=== PATIENT | male | born 1980 | race Caucasian/White ===

== ENCOUNTER 2024-07-04 14:45 | Outpatient (CLI) | payer MEDICARE, MEDICAID ==
[2024-07-04 15:48] VITALS: BP 122/72; PULSE 70; RESP 18; TEMP 97.7; O2SAT 99
== END 2024-07-04 17:15 | disposition home or self-care (01) ==
LOC: CSU 14:45 → EDSTATUS 14:49 → CSU 17:15
PROVIDERS: ATTEND Nurse Practitioner Psychiatric/Mental Health
DX: F20.9 Schizophrenia, unspecified (principal)
CPT/HCPCS: 90839; 90840